=== PATIENT | female | born 1995 | race Caucasian/White ===

== ENCOUNTER → 2024-05-30 13:42 | Outpatient (AMB) | payer OTHER, SELFPAY ==
--- NOTE | 2024-05-30 13:48 | MHC.PC.OV ---
Vital Signs 05/30/24 13:54 Height 5 ft 4.57 in Weight 205 lb 8 oz BMI 34.7 BP 96/70 Blood Pressure Location Lt brachial Position Sitting Respiration 16 Pulse 73 Pulse Source Pulse Oximeter Temp 98.5 F Temp Source Oral Pulse Oximetry (%) 95 Oxygen Delivery Method Room Air Intake Visit Reasons: EstablishCare Intake Note: New patient visit Team Assistant Required: No Is last menstrual period known: No Allergies No Known Allergies Allergy (Verified 05/30/24 13:50) Medication List - Last Reconciled 05/30/24 by Blanca Daniel PA-C No Known Home Meds Tobacco use date assessed: 05/30/24 Dental Screening Dental Screen Date: 05/30/24 Did you have a dental visit in the last 12 months?: Yes Did you have a dental problem in the last 6 months where you did not have access to dental care?: No Was dental information given to patient?: Patient has dentist HPI EstablishCare HPI Details Patient is a 28-year-old female who presents today to [facility]. She is transferring from [facility]. She has a significant past medical history of gastric sleeve surgery. Since I last saw her she has had 2 children in the last 2 years. She is currently breast feeding and when she is done she wants to do a reduction. She states that her breasts grew even more with each and it does cause back and neck pain. She is currently following with a chiropractor. She states that she also sometimes gets rashes underneath her breasts and has to frequently use nystatin powder all year round but it is worse in the summer. Director Of Medical Staff Services: Up-to-date [facility] Medical History (Updated 05/30/24 @ 14:16 by Blanca Daniel PA-C) Depression Surgical History (Updated 05/30/24 @ 14:00 by Verna Mack CMA) Hx of cholecystectomy H/O gastric sleeve Hx of tonsillectomy Family History (Updated 05/30/24 @ 14:02 by Verna Mack CMA) Paternal Grandmother Asthma Diabetes Father Thyroid disorder Cancer Social History (Updated 05/30/24 @ 13:52 by Verna Mack CMA) [facility] Tobacco Use Status: Never used Tobacco e-Cigarette/Vaping Use: Never Used Second Hand Smoke Exposure: Yes (Past) service: No Current occupational status: employed 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 1. Little interest or pleasure in doing things: not at all 2. Feeling down, depressed, or hopeless: not at all 3. Trouble falling or staying asleep, or sleeping too much: not at all 4. Feeling tired or having little energy: several days 5. Poor appetite or overeating: several days 6. Feeling bad about yourself - or that you are a failure or have let yourself or your family down: not at all 7. Trouble concentrating on things, such as reading the newspaper or watching television: not at all 8. Moving or speaking so slowly that other people could have noticed. Or the opposite - being so fidgety or restless that you have been moving around a lot more than usual: not at all 9. Thoughts that you would be better off or of hurting yourself in some way: not at all Total score: 2 Depression Screening Interpretation: Positive Depression Screening Done: Yes 80872 - PHQ-9 Billing: Yes Source: Developed by Drs. Garrett King, Monica Shepherd, Franklin George and colleagues, with an educational zoe from [employer]. Thrive Questionnaire Date Thrive assessed: 05/30/24 I am a: Patient What is your living situation today?: I have a steady place to live Within the past 12 months, did the food you bought not last and you didn't have the money to get more?: Never true Within the past 12 months, did you worry whether your food would run out before you got money to buy more?: Never true Do you have trouble paying for medicines?: No Do you have trouble getting transportation to medical appointments?: No Do you have trouble paying your heating and electricity bill?: No Do you have trouble taking care of your child, family member or friend?: No Do you have trouble with day-to-day activities such as bathing, preparing meals, shopping, managing finances, etc.?: No Are you currently unemployed and looking for a job?: No Are you interested in more education?: No Please select the resources that you would like help with: None Currently or been in a relationship where the following occur: No concerns reported THRIVE Score: 0 AUDIT C Alcohol Use Questionnaire (AUDIT-C) 1. How often do you have a drink containing alcohol?: Monthly or less 2. How many drinks containing alcohol do you have on a typical day when you are drinking?: 1 or 2 3. How often do you have six or more drinks on one occasion?: Never Total Score: 1 GERA-7 AMB Questionnaire GERA-7 Date GERA - 7 assessed: 05/30/24 Feeling nervous, anxious, or on edge: 1 = Several days Not being able to stop or control worryin = Not at all Worrying too much about different things: 0 = Not at all Trouble relaxin = Not at all Being so restless that it is hard to sit still: 0 = Not at all Becoming easily annoyed or irritable: 0 = Not at all Feeling afraid as if something awful might happen: 0 = Not at all Total GERA-7 score (0-4 normal; 5-9 mild; 10-14 moderate; 15-21 severe): 1 Source: Developed by Drs. Garrett King, Monica Shepherd, Franklin George and colleagues, with an educational zoe from [employer]. GERA-7 Assessment Billing GERA-7 Assessment Tool: GERA-7 Assessment 63300 Physical exam (Primary Care) BMI result Body Mass Index 34.7 Depression Screening Interpretation: Positive Currently or been in a relationship where the following occur: No concerns reported Const Orientation/consciousness: patient oriented x3 HENMT Ears: hearing grossly normal bilaterally General nose exam: No nasal polyps present Face and sinus: Yes sinuses nontender Mouth: Normal oral and palatal mucosa present Eyes Pupils: Equal, round and reactive pupils present EOM: EOMs intact bilaterally Neck Neck: Yes full ROM and Yes no lymphadenopathy Thyroid: Thyroid normal Lymphatic: no lymphadenopathy noted Chest Chest palpation & inspection: normal inspection of the chest Resp Auscultation: clear to auscultation bilaterally Cardio Rate: regular rate Rhythm: regular rhythm Heart sounds: S1 normal heart sound present and S2 normal heart sound present Peripheral pulses: Peripheral pulses 2+ throughout GI Other: Soft, nontender Inspection: Yes normal to inspection Palpation (GI): Soft to palpation and Other GI palpation findings present (nontender, no cva tenderness) Auscultation: normoactive bowel sounds Rectal Exam - Female: deferred General: Yes no CVA tenderness Back/Spine/Pelvis Other: Nontender Back: no CVA tenderness Skin General skin exam: no rashes or lesions noted Neuro General: patient oriented x3, gait normal and no focal motor deficits Cranial nerves: Yes Equal, round and reactive pupils present Motor exam (neuro): 5/5 motor strength present throughout Sensory Exam: double simultaneous stimulation for sensation normal Coordination: [id number] test normal and Romberg test negative Extrem General: Yes normal to inspection and Yes full ROM Psych Affect: normal affect Attitude: cooperative Thought process: Normal thought process present Thought content: Normal thought content present Insight: Good insight present (Psych) Judgement: Good judgement present (Psych) Assessment and Plan Assessment & Plan (1) Routine general medical examination at a health care facility: Code(s): Z00.00 - Encounter for general adult medical examination without abnormal findings Plan: Health maintenance reviewed. Labs ordered. (2) CY (iron deficiency anemia): Code(s): D50.9 - Iron deficiency anemia, unspecified Plan: Has a history of anemia and is currently taking a . We will follow up pending test results. Orders: Orders Lipid Panel Today D50.9 - Iron deficiency anemia, unspecified, Z00.00 - Encounter for general adult medical examination without abnormal findings, Z90.3 - Acquired absence of stomach [part of] TSH reflex Free T4 Today D50.9 - Iron deficiency anemia, unspecified, Z00.00 - Encounter for general adult medical examination without abnormal findings, Z90.3 - Acquired absence of stomach [part of] Complete Blood Count Auto Diff Today D50.9 - Iron deficiency anemia, unspecified, Z00.00 - Encounter for general adult medical examination without abnormal findings, Z90.3 - Acquired absence of stomach [part of] Comprehensive [employer]. Panel Fast Today D50.9 - Iron deficiency anemia, unspecified, Z00.00 - Encounter for general adult medical examination without abnormal findings, Z90.3 - Acquired absence of stomach [part of] Vitamin B12 and Folate Today D50.9 - Iron deficiency anemia, unspecified, Z00.00 - Encounter for general adult medical examination without abnormal findings, Z90.3 - Acquired absence of stomach [part of] IRON PROFILE Today D50.9 - Iron deficiency anemia, unspecified, Z00.00 - Encounter for general adult medical examination without abnormal findings, Z90.3 - Acquired absence of stomach [part of] Coding Level of Care Code Est Pt Prev Care [id number]([id number]) Diagnoses Routine general medical examination at a health care facility Z00.00 CY (iron deficiency anemia) D50.9 Additional Codes GERA-7 Assessment Billing - GERA-7 Assessment Tool: GERA-7 Assessment 00510 ([id number])
[2024-05-30 13:54] VITALS: BP 96/70; PULSE 73; RESP 16; TEMP 36.9; O2SAT 95; BMI 34.7
== END ==
PROVIDERS: PCP Physician Assistant; Visit Provider Physician Assistant
DX: Z00.00 Encounter for general adult medical examination without abnormal findings (principal); D50.9 Iron deficiency anemia, unspecified
CPT/HCPCS: 99395